=== PATIENT | female | born 1985 | race African-American/Black ===

== ENCOUNTER 2020-11-26 20:26 | Emergency (ER) | payer SELFPAY ==
[~2020-11-26] VITALS: Ht 160 cm; Wt 90.7 kg
[2020-11-26] MEDS ORDERED: CLONIDINE HCL 0.1 MG TAB PO ONE (21:00)
[2020-11-26] MEDS ORDERED: HYDROCHLOROTHIA25 MG PO (22:10)
== END 2020-11-26 22:16 | disposition home or self-care (01) ==
LOC: ER 21:42
DX: I10 Essential (primary) hypertension (principal)
CPT/HCPCS: 99283

== ENCOUNTER 2021-05-06 23:26 | Emergency (ER) | payer SELFPAY ==
[~2021-05-06] VITALS: Ht 160 cm; Wt 90.7 kg
[~2021-05-06 23:26] MED LIST: HYDROCHLOROTHIA25 MG PO
[2021-05-07 00:02] LABS: BASOPHILS % 0.3 % (0.0-1.0); EOSINOPHILS # (AUTO) 0.1 (0.0-0.4); EOSINOPHILS % 1.4 % (0.0-6.0); HEMATOCRIT 39.1 % (34.2-44.1); HEMOGLOBIN 12.7 g/dL (12.0-16.0); LYMPHOCYTES # (AUTO) 3.6 (1.0-3.2); LYMPHOCYTES % 46.4 % (18.0-39.1); MEAN CORPUSCULAR HEMOGLOBIN 30.3 pg (28-32); MEAN CORPUSCULAR HGB CONC 32.5 g/dL (31-35); MEAN CORPUSCULAR VOLUME 93.3 fL (81-99); MONOCYTES # (AUTO) 0.5 (0.2-0.8); MONOCYTES % 6.4 % (4.4-11.3); NEUTROPHILS # (AUTO) 3.5 (2.1-6.9); NEUTROPHILS % 45.2 % (38.7-80.0); PLATELET COUNT 225 x10e3/uL (140-360); RED BLOOD COUNT 4.19 x10e6/uL (3.6-5.1)
[2021-05-07 00:16] LABS: ANION GAP 11.8 mmol/L (8-16); CALCIUM 8.9 mg/dL (8.4-10.2); CREATININE, SERUM 0.81 mg/dL (0.57-1.11); POTASSIUM 3.8 mmol/L (3.5-5.1)
[2021-05-07] MEDS ORDERED: AMLODIPINE BESYLATE 5 MG TAB PO ONE (01:45)
[2021-05-07] MEDS ORDERED: AMLODIPINE BESYLATE 5 MG TAB ONE (01:52)
== END 2021-05-07 01:45 | disposition home or self-care (01) ==
LOC: ER 05-07 00:21
DX: R51.9 Headache, unspecified (principal); I10 Essential (primary) hypertension; Z20.822 Contact with and (suspected) exposure to COVID-19; F41.9 Anxiety disorder, unspecified
CPT/HCPCS: 36415; 70450; 80048; 85025; 99284; U0002

== ENCOUNTER 2021-06-30 21:09 | Emergency (ER) | payer SELFPAY ==
[~2021-06-30] VITALS: Ht 160 cm; Wt 85.3 kg
[2021-06-30] MEDS ORDERED: AMLODIPINE BESYL5 MG PO (21:22)
[2021-06-30] MEDS ORDERED: DOXYCYCLINE HY100 MG PO (21:22)
[2021-06-30 21:48] VITALS: BP 149/95
== END 2021-06-30 21:50 | disposition home or self-care (01) ==
LOC: ER 21:21
DX: R23.8 Other skin changes (principal); I10 Essential (primary) hypertension; F41.9 Anxiety disorder, unspecified
CPT/HCPCS: 99282

== ENCOUNTER 2021-10-04 15:16 | Emergency (ER) | payer SELFPAY ==
[~2021-10-04] VITALS: Ht 160 cm; Wt 85.3 kg
[~2021-10-04 15:16] MED LIST changes: +AMLODIPINE BESYL5 MG PO; +DOXYCYCLINE HY100 MG PO
[2021-10-04] MEDS ORDERED: AUGMENTIN 875-1 EACH PO (15:43)
[2021-10-04] MEDS ORDERED: KETOROLAC TROMETHAMINE 60 MG/2 ML VIAL IM ONE (15:45)
[2021-10-04] MEDS ORDERED: KETOROLAC TROMETHAMINE 30 MG/ML VIAL ONE (15:50)
== END 2021-10-04 15:48 | disposition home or self-care (01) ==
LOC: ER 15:40
DX: R68.84 Jaw pain (principal); K02.9 Dental caries, unspecified; F17.210 Nicotine dependence, cigarettes, uncomplicated
CPT/HCPCS: 99282; J1885

== ENCOUNTER 2022-04-25 20:08 | Emergency (ER) | payer MEDICARE ==
[~2022-04-25] VITALS: Ht 160 cm; Wt 85.3 kg
[~2022-04-25 20:08] MED LIST changes: +AUGMENTIN 875-1 EACH PO
[2022-04-25] MEDS ORDERED: ACETAMINOPHEN 325 MG TAB PO ONE (20:30)
[2022-04-25] MEDS ORDERED: ACETAMINOPHEN 325 MG TAB ONE (20:37)
== END 2022-04-25 21:34 | disposition home or self-care (01) ==
LOC: ER 20:12
DX: R50.9 Fever, unspecified (principal); U07.1 COVID-19; R05.9 Cough, unspecified; I10 Essential (primary) hypertension; F41.9 Anxiety disorder, unspecified; F17.210 Nicotine dependence, cigarettes, uncomplicated
CPT/HCPCS: 99283; U0002

== ENCOUNTER 2023-02-20 13:32 | Emergency (ER) | payer OTHER ==
[~2023-02-20] VITALS: Ht 160 cm; Wt 108.9 kg
[2023-02-20 13:32] VITALS: O2SAT 98
[2023-02-20] MEDS ORDERED: KETOROLAC TROMETHAMINE 30 MG/ML VIAL IV ONE (13:36)
[2023-02-20] MEDS ORDERED: DIPHENHYDRAMINE HCL 25 MG CAP PO ONE (13:45)
[2023-02-20] MEDS ORDERED: METOCLOPRAMIDE HCL 10 MG/2ML VIAL IV ONE (13:45)
[2023-02-20] MEDS ORDERED: SODIUM CHLORIDE 0.9% 1000ML 1,000 ML IV SCH (13:45)
== END 2023-02-20 16:15 | disposition home or self-care (01) ==
LOC: ER 13:39
DX: R51.9 Headache, unspecified (principal); I10 Essential (primary) hypertension; F41.9 Anxiety disorder, unspecified
CPT/HCPCS: 70450; 99284; J1885; J2765; J7030